=== PATIENT | female | born 1975 | race Two or more races ===

== ENCOUNTER 2023-09-13 20:31 | Emergency (ER) | payer OTHER, SELFPAY ==
--- NOTE | ~2023-09-13 | CT_ITS ---
EXAMINATION: CT HEAD WITHOUT CONTRAST CLINICAL INFORMATION: Syncope. Question seizure. Query bleed. Query mass effect. COMPARISON: None available. TECHNIQUE: Contiguous axial imaging was performed from the skull base to vertex without intravenous administration of contrast. This CT examination was performed using dose optimization techniques as appropriate, variously including the following: *Automated exposure control *Adjustment of mA and/or kV according to patient size (this includes techniques or standardized protocols for targeted exams where dose is matched to indication/reason for exam; i.e. extremities or head) *Use of iterative reconstruction technique DLP: 653 mGy-cm FINDINGS: There is no acute intracranial hemorrhage. There is no evidence of acute/subacute cerebral or cerebellar infarction. There is no mass effect, midline shift, or extra-axial fluid collection. The ventricles are normal in size and configuration. The orbits are symmetric and within normal limits. The visualized paranasal sinuses are clear. The mastoid air cells are well aerated. CT/CT head/brain wo IV con IMPRESSION: No acute intracranial pathology.
[2023-09-13 20:49] VITALS: BP 126/98; BP 144/64; PULSE 90; PULSE 93; RESP 20; TEMP 36.7; O2SAT 98; O2SAT 99; BMI 23.3
--- NOTE | 2023-09-13 20:55 | ECG_ITS ---
Test Reason : SEIZURE Blood Pressure : / mmHG Vent. Rate : 100 BPM Atrial Rate : 100 BPM P-R Int : 166 ms QRS Dur : 074 ms QT Int : 370 ms P-R-T Axes : 052 043 046 degrees QTc Int : 477 ms Normal sinus rhythm Normal ECG No previous ECGs available Referred By: Deepak Monteiro Electronically Signed By:MARY LARSON
--- NOTE | 2023-09-13 20:56 | ED.SYNCOPE ---
HPI - Syncope General Chief Complaint: Syncope Stated Complaint: witnessed sz Time Seen by Provider: 09/13/23 20:49 Source: patient Mode of arrival: EMS Limitations: no limitations History of Present Illness HPI narrative: 48-year-old female with a history of depression, anxiety who presents emergency department for evaluation of a syncopal episode versus seizure. The patient states that she was at [employer] [facility] and then does not have a memory of what happened. She states she was standing up and then she was told that she felt a ground in the next thing she remembers that she woke up sitting in a chair. She was told that she was shaking but does not appear to have had a postictal period. She did bite the left lateral aspect of her tongue and her left lip. She states that 3 or 4 weeks ago she was at her ex-boyfriend's house and when she went to leave she had another episode where she passed out. Her ex-boyfriend told her that her hands look like they were cramping and then she passed out and had no memory of what happened after that. The patient states that she has been under lot of stress secondary to her relationship with her ex-boyfriend. She states that she feels like her whole body is restless and often shakes uncontrollably. She states she will no this shaking in all of her extremities at different times. She states she has had difficulty sleeping but she does take Ambien at night that helps with her insomnia. She also has a psychiatrist that prescribed Wellbutrin for depression. She had a good appetite and has been eating and drinking well. At the time my evaluation the patient did have fine tremors of her legs hands and shoulders that would happen intermittently and she states she was having difficulty controlling these tremors. She does appear to be anxious. Related Data Previous Rx's ?Medication ?Instructions ?Recorded lorazepam 1 mg tablet (Ativan) 1 mg PO TID PRN anxiety #10 tabs 09/14/23 Allergies Allergy/AdvReac Type Severity Reaction Status Date / Time No Known Allergies Allergy Verified 09/13/23 20:52 Review of Systems Review of Systems: Yes all other systems are reviewed and are negative [facility] Past Medical History [facility] Narrative: Social history: She denies tobacco, alcohol and drug use Social History Social History Advance Directives: No Advance Directives Information Provided: No Physical Exam Vital Signs: Vital Signs: Last Vital Signs Temp 98.1 F 09/13/23 23:55 Pulse 94 09/13/23 23:55 Resp 16 09/13/23 23:55 BP 119/70 09/13/23 23:55 Pulse Ox 98 09/13/23 23:55 O2 Del Method Room Air 09/13/23 23:55 BMI result Body Mass Index 23.3 Vital signs revealed an elevated respiratory rate of 20, elevated blood pressure 144/64 otherwise unremarkable Exam: General: Awake, appears anxious, has tremors of her extremities that she can not control Head: Normocephalic, atraumatic EENT: PERRL, Lids-superficial bite to her left lower lip, sclera normal, conjunctiva normal, nose normal , ears normal, throat without erythema or exudates, superficial bite to the left lateral aspect of her tongue Neck: Supple, no adenopathy Lung: breath sounds symmetric, no wheezing, rales or rhonchi Chest: symmetric movement, nontender Heart: regular rate and rhythm, normal S1, S2 no murmurs or rubs Abdomen: soft, non-tender, nondistended, normal bowel sounds Back: no vertebral tenderness, no CVAT Extremities: no deformities, moves all extremities symmetrically Neuro: Awake, alert, oriented, normal speech, cranial nerves intact, moves all extremities symmetrically Psych: Pleasant, cooperative Medications Administered Discontinued Medications Generic Name Dose Route Start Last Admin Trade Name Freq PRN Reason Stop Dose Admin Sodium Chloride 1,000 mls @ 999 mls/hr 09/13/23 21:11 09/13/23 21:42 Ns IV 09/13/23 22:11 999 mls/hr .Q1H1M STA Administration Lorazepam 1 mg 09/13/23 21:11 09/13/23 21:42 Lorazepam 2 Mg/Ml Vial IVPUSH 09/13/23 21:12 1 mg STAT STA Administration Medical Decision Making Medical Decision Making MDM Narrative: 48-year-old female with a history of depression and anxiety who presents emergency department for a syncopal episode that occurred in [employer]. Patient also had a similar episode 3 or 4 weeks prior while she was visiting her ex boyfriend and her ex-boyfriend told her that prior to passing out her arms became very stiff. After both events that does not appear that the patient had a postictal period. In the emergency department the patient does appear to be very anxious, she does have an elevated blood pressure and elevated respiratory rate. Patient's exam did reveal tremors of her upper and lower extremities. Differential diagnosis: ?Includes but is not limited to electrical seizure, non electrical seizure, cardiac arrhythmia, electrolyte abnormality, anemia Following evaluation was ordered: CBC, CMP, magnesium, CK, lactic acid, quantitative beta-hCG, 12 EKG, CT scan of the brain without IV contrast Patient was initially treated with the following: Ativan 1 mg IV, normal saline x1 L Course: :08 My independent interpretation patient's laboratory evaluation is as follows: CBC was normal. Glucose elevated 140. CMP was otherwise unremarkable. Lactic acid elevated 3.1. Repeat lactic acid improved to 1.0. Magnesium was normal. test was below detectable limits. CT scan of the head revealed no significant abnormalities. At this time I believe the patient's symptoms are more consistent with nonepileptic seizure caused by stress and anxiety and I did discuss this with the patient. The patient was given a prescription for Ativan 1 mg 3 times a day as needed for anxiety. She was advised to follow-up with her PCP for further treatment. Admission/Observation Consideration of admission/observation: Escalation of care including admission/observation considered Lab Data MDM Lab Attestation statement: I reviewed the patient's lab results. 09/13/23 21:19 09/13/23 21:19 Labs: Lab Results 09/13/23 09/13/23 Range/Units 21:19 23:53 WBC 7.7 (4.8-10.8) X10*3/uL RBC 4.22 (4.20-5.50) X10*6/uL Hgb 12.6 (12.0-16.0) g/dl Hct 37.8 (37.0-47.0) % MCV 89.6 (80.0-98.0) fL MCH 29.9 (27.0-33.0) pg MCHC 33.3 (31.0-35.0) g/dl RDW 14.7 (11.0-16.0) % Plt Count 366 (160-400) X10*3/uL MPV 9.5 (9.4-12.3) fL Immature Gran % (Auto) 0.4 (0.0-0.4) % Neut % (Auto) 71.8 (45-73) % Lymph % (Auto) 21.0 (20-40) % Kerr % (Auto) 5.7 (2-11) % Eos % (Auto) 0.6 (0-4) % Baso % (Auto) 0.5 (0-2) % Lymph # (Auto) 1.6 (1.2-4.9) X10*3/uL Kerr # (Auto) 0.4 (0.1-1.2) X10*3/uL Eos # (Auto) 0.1 (0.0-0.4) X10*3/uL Baso # (Auto) 0.0 (0.0-0.2) X10*3/uL Abs Immat Gran (auto) 0.03 (0.00-0.03) X10*3/uL Absolute Neuts (auto) 5.5 (2.0-8.3) x10*3/uL Absolute Nucleated RBC 0.000 (0.0-0.012) X10*3/uL Nucleated RBC % (auto) 0.0 (0.0-0.2) /100WBC Sodium 139 (135-145) mmol/L Potassium 3.6 (3.3-5.1) mmol/L Chloride 107 (96-108) mmol/L Carbon Dioxide 24 (22-29) mmol/L Anion Gap 12 (12-20) BUN 13 (9-16) mg/dL Creatinine 1.04 (0.5-1.4) mg/dL Estim Creat Clear Calc 58.2 Estimated GFR 56 Random Glucose 140 H (60-115) mg/dL Lactic Acid 3.1 H* (0.5-2.0) mmol/L Lactic Acid F/U @ 2Hr 1.0 (0.5-2.0) mmol/L Calcium 8.8 (8.4-10.2) mg/dL Magnesium 2.4 (1.6-2.6) mg/dL Total Bilirubin 0.3 (0.0-1.0) mg/dL AST 9 (5-31) U/L ALT 11 (0-31) U/L Alkaline Phosphatase 40 (39-117) U/L Total Creatine Kinase 72 (26-140) U/L Total Protein 6.5 (6.5-8.0) g/dL Albumin 3.9 (3.5-5.0) g/dL Beta HCG, Quant < 2 mIU/mL Independent Interpretation I performed an independent interpretation of an: EKG Interpretation: My interpretation patient's 12 EKG done at 21:00 hours is as follows: Normal sinus rhythm with a rate of 100, normal TX interval, QRS duration QTC interval, no ST segment elevation, no ST segment depression, no PACs, no PVCs, normal T-waves, this is a normal EKG. Radiology Impression Discussion of test interpretation with radiology: I have reviewed the radiologist's reading. Radiologist Impression: CT head/brain wo IV con IMPRESSION: No acute intracranial pathology. Dictated By: Chapito Solano Jr DO Discharge Plan Discharge Clinical Impression: Acute hyperventilation syndrome, Psychogenic nonepileptic seizure Patient Disposition: Home, Self-Care Instructions: Hyperventilation (ED) Additional Instructions: Your blood work today was unremarkable. The CT scan of your brain did not reveal any abnormalities. Based on the description of your symptoms I think that you have a non epileptic seizure caused by stress however I do want you to follow-up with our neurologist to get a further evaluation. Also, I want you to follow-up with your psychiatrist to see if you need a change in your medications to try to help with your increased stress and anxiety. I am prescribing Ativan 1 mg pills, 1 pill 3 times a day as needed for stress and anxiety. Follow-up with your doctor in 2 days. Follow-up with our neurologist in 1-2 weeks. Please return to the emergency department if your symptoms get worse or if you develop any symptoms that are concerning to you. Prescriptions: New lorazepam [Ativan] 1 mg tablet 1 mg PO TID PRN (Reason: anxiety) Qty: 10 0RF Rx Instructions: Patient may request partial fill Referrals: Maribel Worley MD [Physician] - 2 weeks (Seen in ED for possible seizure versus nonepileptic seizures) Print Language: [place]
[2023-09-13 21:23] LABS: MANUAL DIFF FLAG NO
[2023-09-13 21:31] LABS: Basophils Percent Auto 0.5 % (0-2); Eosinophils Absolute Auto 0.1 X10*3/uL (0.0-0.4); Eosinophils Percent Auto 0.6 % (0-4); Hematocrit 37.8 % (37.0-47.0); Hemoglobin 12.6 g/dl (12.0-16.0); Imm Gran Abs Auto 0.03 X10*3/uL (0.00-0.03); Imm Gran Pct Auto 0.4 % (0.0-0.4); Lymphocytes Absolute Auto 1.6 X10*3/uL (1.2-4.9); Mean Corpuscular HGB Conc 33.3 g/dl (31.0-35.0); Mean Corpuscular Hemoglobin 29.9 pg (27.0-33.0); Mean Corpuscular Volume 89.6 fL (80.0-98.0); Mean Platelet Volume 9.5 fL (9.4-12.3); Monocytes Absolute Auto 0.4 X10*3/uL (0.1-1.2); Monocytes Percent Auto 5.7 % (2-11); Neutrophils Absolute Auto 5.5 x10*3/uL (2.0-8.3); Neutrophils Percent Auto 71.8 % (45-73); Platelet Count 366 X10*3/uL (160-400); Red Blood Count 4.22 X10*6/uL (4.20-5.50); Red Cell Distribution Width 14.7 % (11.0-16.0); White Blood Count 7.7 X10*3/uL (4.8-10.8)
[2023-09-13 21:36] LABS: Lactic Acid 3.1 mmol/L (0.5-2.0)
[2023-09-13 21:41] LABS: Alanine Aminotransferase 11 U/L (0-31); Albumin Level 3.9 g/dL (3.5-5.0); Alkaline Phosphatase 40 U/L (39-117); Anion Gap 12 (12-20); Aspartate Amino Transferase 9 U/L (5-31); Bilirubin Total 0.3 mg/dL (0.0-1.0); Blood Urea Nitrogen 13 mg/dL (9-16); Calcium 8.8 mg/dL (8.4-10.2); Carbon Dioxide 24 mmol/L (22-29); Chloride 107 mmol/L (96-108); Creatinine Clr Calc Pharmacy 58.2; Estimated Glomerular Filt Rate 56; Glucose Random 140 mg/dL (60-115); Potassium 3.6 mmol/L (3.3-5.1); Sodium 139 mmol/L (135-145); Total Protein 6.5 g/dL (6.5-8.0)
[2023-09-13] MEDS: LORazepam 2 MG/ML VIAL 1 MG IVPUSH (21:42)
[2023-09-13] MEDS: 0.9 % Sodium Chloride 1,000 ML 999 ML IV (21:42)
[2023-09-13 21:49] LABS: HCG Quantitative < 2 mIU/mL; Magnesium 2.4 mg/dL (1.6-2.6)
[2023-09-13 23:22] LABS: Reflex Lactate? Lactic Acid Added
[2023-09-13 23:55] VITALS: BP 119/70; PULSE 94; RESP 16; TEMP 36.7; O2SAT 98
[2023-09-14 01:58] VITALS: BP 120/76; PULSE 89; RESP 12; TEMP 36.6; O2SAT 97
== END 2023-09-14 01:59 | disposition home or self-care (01) ==
PROVIDERS: Emergency Provider Emergency Medicine Emergency Medical Services
DX: R55 Syncope and collapse (principal); R56.9 Unspecified convulsions; F33.1 Major depressive disorder, recurrent, moderate; R11.0 Nausea; R10.2 Pelvic and perineal pain; Z79.899 Other long term (current) drug therapy
CPT/HCPCS: 36415; 70450; 80053; 82550; 83605; 83735; 84702; 85025; 93005; 96361; 96374; 99284; J2060

== ENCOUNTER → 2023-09-13 20:55 | Outpatient (BNV) | payer OTHER, SELFPAY | PROVIDERS: Emergency Provider Emergency Medicine Emergency Medical Services; Visit Provider Internal Medicine | DX: R56.9 Unspecified convulsions (principal) | CPT/HCPCS: 93010 ==